=== PATIENT | female | born 1955 | race Caucasian/White ===

== ENCOUNTER 2017-10-18 15:15 | Emergency (ER) | payer OTHER ==
[2017-10-18 16:52] LABS: ADD MAN DIFF? NO
[2017-10-18 17:00] LABS: BASOPHILS % 0.4 % (0.0-2.0); EOSINOPHILS # 0.1 10^3/ul (0.0-0.5); HEMATOCRIT 41.1 % (37.0-47.0); HEMOGLOBIN 13.5 g/dl (12.0-16.0); LYMPHOCYTES # 1.7 10^3/ul (0.8-2.9); MEAN CORPUSCULAR HEMOGLOBIN 29.3 pg (29.0-33.0); MEAN CORPUSCULAR HGB CONC 32.8 g/dl (32.0-37.0); MEAN CORPUSCULAR VOLUME 89.3 fl (82.0-101.0); MEAN PLATELET VOLUME 9.5 fl (7.4-10.4); MONOCYTE # 0.8 10^3/ul (0.3-0.9); MONOCYTES % 8.7 % (0.0-11.0); NEUTROPHILS % 72.6 % (39.0-77.0); PLATELET COUNT 323 10^3/UL (140-415); RED CELL DISTRIBUTION WIDTH 12.6 % (11.5-14.5)
[2017-10-18 17:00] LABS: WHITE BLOOD COUNT 9.7 10^3/ul (4.8-10.8)
[2017-10-18] MEDS: ONDANSETRON 4 MG INJ IV (17:02)
[2017-10-18] MEDS: SOD CHLORIDE 0.9% 1,000 ML IV (17:03)
[2017-10-18] MEDS: MECLIZINE 12.5 MG TAB PO (17:03)
[2017-10-18 17:28] LABS: INR 1.02; PROTIME 13.5 Sec (11.9-14.9); PT RATIO 1.1
[2017-10-18 17:30] LABS: ALANINE AMINOTRANSFERASE 33 IU/L (13-69); ALBUMIN 4.8 g/dl (3.3-4.9); ALBUMIN/GLOBULIN RATIO 1.45; ALKALINE PHOSPHATASE 103 IU/L (42-121); ANION GAP 16 (8-16); ASPARTATE AMINO TRANSFERASE 25 IU/L (15-46); BILIRUBIN,INDIRECT 0.4 mg/dl (0-1.1); BILIRUBIN,TOTAL 0.4 mg/dl (0.2-1.3); BLOOD UREA NITROGEN 18 mg/dl (7-20); CALCIUM 10.3 mg/dl (8.4-10.2); CARBON DIOXIDE 24 mmol/L (21-31); CHLORIDE 105 mmol/L (97-110); CREATINE KINASE 79 IU/L (23-200); CREATININE 0.79 mg/dl (0.44-1.00); GLUCOSE 139 mg/dl (70-220); POTASSIUM 3.9 mmol/L (3.5-5.1); SODIUM 141 mmol/L (135-144); TOTAL PROTEIN 8.1 g/dl (6.1-8.1)
[2017-10-18 17:34] LABS: PARTIAL THROMBOPLASTIN TIME 29.9 Sec (25.0-35.0)
[2017-10-18 17:41] LABS: B-TYPE NATRIURETIC PEPTIDE 11 PG/ML (0-125); CK INDEX 1.2; CK-MB 0.97 ng/ml (0.0-2.4); TROPONIN-I < 0.010 ng/ml (0.000-0.120)
== END 2017-10-18 20:37 | disposition home or self-care (01) ==
LOC: E/R 15:15
DX: R42 Dizziness and giddiness (principal); E86.0 Dehydration; I10 Essential (primary) hypertension; E11.9 Type 2 diabetes mellitus without complications; R07.9 Chest pain, unspecified; Z79.84 Long term (current) use of oral hypoglycemic drugs; Z79.82 Long term (current) use of aspirin
CPT/HCPCS: 70450; 71045; 80053; 82550; 82553; 83880; 84484; 85025; 85610; 85730; 93005; 96374; 99285-25